=== PATIENT | female | born 2000 | race Two or more races ===

== ENCOUNTER 2022-09-30 16:02 | Emergency (ER) | payer OTHER ==
[~2022-09-30] VITALS: Ht 149.9 cm; Wt 66.5 kg
[2022-09-30 16:33] VITALS: BP 142/83
[2022-09-30] MEDS ORDERED: METH750T22 PO (17:18)
[2022-09-30] MEDS ORDERED: IBUP800T27 PO (17:18)
== END 2022-09-30 17:32 | disposition home or self-care (01) ==
LOC: ER 16:05
DX: S16.1XXA Strain of muscle, fascia and tendon at neck level, initial encounter (principal); Z88.0 Allergy status to penicillin; V49.9XXA Car occupant (driver) (passenger) injured in unspecified traffic accident, initial encounter; Y93.89 Activity, other specified; Y92.411 Interstate highway as the place of occurrence of the external cause; Y99.8 Other external cause status
CPT/HCPCS: 72040

== ENCOUNTER 2024-03-14 01:25 | Emergency (ER) | payer OTHER ==
[~2024-03-14] VITALS: Ht 149.9 cm; Wt 66.6 kg
[~2024-03-14 01:25] MED LIST: IBUP-1456 PO; METH-1182 PO
[2024-03-14 01:41] LABS: Basophils # (auto) 0.1 10 ^3/uL (0-0.2); Basophils % (auto) 0.5 % (0.0-2.0); Eosinophils # (auto) 0.1 10 ^3/uL (0-0.8); Eosinophils % (auto) 0.8 % (0.0-7.0); Hemoglobin 14.3 g/dL (12.2-16.2); Lymphocytes # (auto) 2.6 10 ^3/uL (0.4-5.4); Lymphocytes % (auto) 21.2 % (10.0-50.0); Mean Corpuscular Hemoglobin 27.9 pg (28.0-32.0); Mean Corpuscular Volume 82.2 fL (80.0-100.0); Monocytes # (auto) 0.8 10 ^3/uL (0-1.3); Monocytes % (auto) 6.4 % (0.0-12.0); Neutrophils # (auto) 8.8 10 ^3/uL (1.6-8.6); Neutrophils % (auto) 71.1 % (37.0-80.0); Red Blood Cells 5.11 10^6/uL (4.0-5.20); Red Cell Distribution Width 14.5 % (11.8-14.3); White Blood Cell 12.4 10^3/uL (4.4-10.8)
[2024-03-14 01:44] LABS: Urine Bacteria None Seen /hpf (None Seen)
[2024-03-14 01:56] LABS: Urine Amorphous Crystal FEW /hpf (None Seen); Urine Blood Negative /uL (Negative); Urine Clarity Turbid (Clear); Urine Color Light-Yellow (Yellow); Urine Protein, UAD Negative (Negative); Urine Specific Gravity 1.019 (1.001-1.035); Urine Urobilinogen Normal (Negative); Urine WBC 4 /hpf (0 - 5)
[2024-03-14 02:00] LABS: Alanine Aminotransferase 98 U/L (7-40); Albumin 4.6 g/dL (3.2-4.8); Alkaline Phosphatase 108 U/L (46-116); Anion Gap 8 (5-15); Aspartate Aminotransferase 51 U/L (13-40); BUN/Creatinine Ratio 9.9 (10.0-20.0); Bilirubin, Total 0.4 mg/dL (0.2-1.0); Blood Urea Nitrogen 8 mg/dL (9-23); Calcium 9.7 mg/dL (8.7-10.4); Carbon Dioxide 25 mmol/L (20-30); Chloride 107 mmol/L (98-107); Glucose 120 mg/dL (74-106); Potassium 3.8 mmol/L (3.5-5.1); Sodium 140 mmol/L (136-145); Total Protein 7.5 g/dL (5.7-8.2)
[2024-03-14 02:59] VITALS: BP 109/76; PULSE 92; RESP 12; TEMP 98.3; O2SAT 97
[2024-03-14] MEDS: LORazepam 0.5 MG TAB PO ONE (03:10)
[2024-03-14] MEDS: ONDANSETRON ODT 4 MG TAB PO ONE ×2 (03:10→04:14)
[2024-03-14] MEDS: FAMOTIDINE 20 MG TAB PO ONE (03:10)
[2024-03-14] MEDS: MAALOX PLUS or MAALOX 30 ML PO ONE (03:11)
== END 2024-03-14 04:24 | disposition home or self-care (01) ==
LOC: ER 01:25
DX: R07.89 Other chest pain (principal); Z88.0 Allergy status to penicillin
CPT/HCPCS: 36415; 71045; 80053; 81001; 84484; 85025; 99284; Q0162